=== PATIENT | male | born 1955 | race Caucasian/White ===

== ENCOUNTER 2018-11-20 13:31 | Emergency (ER) | payer MEDICARE, MEDICAID ==
[2018-11-20] MEDS ORDERED: Sodium Chloride 0.9% 10 ML Syringe FLUSH PRN (14:31)
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
[2018-11-20] MEDS ORDERED: Sodium Chloride 0.9% 1,000 ML IV ONE ×2 (14:34→15:49)
== END 2018-11-20 17:13 | disposition home or self-care (01) ==
LOC: FB.ED 13:31
DX: S30.0XXA Contusion of lower back and pelvis, initial encounter (principal); R03.1 Nonspecific low blood-pressure reading; E86.0 Dehydration; F41.9 Anxiety disorder, unspecified; W18.39XA Other fall on same level, initial encounter; Y92.009 Unspecified place in unspecified non-institutional (private) residence as the place of occurrence of the external cause; Z79.82 Long term (current) use of aspirin; Z79.899 Other long term (current) drug therapy
CPT/HCPCS: 36415; 70450; 71046; 72125; 73502; 80053; 81001; 84484; 85025; 85610; 86140; 93005; 96360; 96361; 99285; J7030; 93010; 99284

== ENCOUNTER 2020-06-25 17:51 | Emergency (ER) | payer MEDICARE, MEDICAID ==
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
== END 2020-06-25 19:42 ==
LOC: FB.ED 17:51
DX: Z43.1 Encounter for attention to gastrostomy (principal); I95.9 Hypotension, unspecified; N40.0 Benign prostatic hyperplasia without lower urinary tract symptoms; Z79.899 Other long term (current) drug therapy; Z79.82 Long term (current) use of aspirin
CPT/HCPCS: 43762; 51702; 99283-25; 99284

== ENCOUNTER 2020-11-19 12:58 | Emergency (ER) | payer MEDICARE, MEDICAID ==
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
== END 2020-11-19 13:22 ==
LOC: FB.ED 12:58
DX: K94.23 Gastrostomy malfunction (principal); Z79.82 Long term (current) use of aspirin; Z79.899 Other long term (current) drug therapy
CPT/HCPCS: 43762; 99284-25

== ENCOUNTER 2021-11-10 07:20 | Emergency (ER) | payer MEDICARE, MEDICAID | END 2021-11-10 08:15 | LOC: FB.ED 07:20 | DX: K94.23 Gastrostomy malfunction (principal); J44.9 Chronic obstructive pulmonary disease, unspecified; N40.0 Benign prostatic hyperplasia without lower urinary tract symptoms; Z79.82 Long term (current) use of aspirin; Z79.899 Other long term (current) drug therapy | CPT/HCPCS: 43752; 99281; 99282-25 ==

== ENCOUNTER 2021-11-18 08:50 | Inpatient (IN) | payer MEDICARE, MEDICAID ==
[2021-11-18] MEDS ORDERED: cefTRIAXone 2 GM Vial IVPUSH ONE (11:34)
[2021-11-18] MEDS ORDERED: Azithromycin 500 MG in Sodium Chloride 0.9% 250 ML IV ONE (11:34)
[2021-11-18] MEDS ORDERED: Acetaminophen 325 MG Tab PO PRN (16:31)
[2021-11-18] MEDS: Sodium Chloride 0.9% 10 ML Syringe FLUSH PRN ×3 (16:43→21:54)
[2021-11-18] MEDS: Enoxaparin 40 MG/0.4 ML Syringe SUBCUT SCH (16:44)
[2021-11-18] MEDS ORDERED: Acetaminophen 325 MG Tab GTUBE PRN (16:47)
[2021-11-18] MEDS ORDERED: Bisacodyl 10 MG Supp RECTAL PRN (18:46)
[2021-11-18] MEDS ORDERED: Calcium Carbonate 500 MG Tab.Chew GTUBE PRN (18:46)
[2021-11-18] MEDS ORDERED: Ondansetron 4 MG Tab.DIS GTUBE PRN (18:48)
[2021-11-18] MEDS: Ondansetron 4 MG/2 ML SDV IVPUSH PRN (18:50)
[2021-11-18] MEDS ORDERED: hydrOXYzine HCl 50 MG/ML SDV IM ONE (20:58)
[2021-11-18] MEDS ORDERED: Sodium Chloride 0.9% 1,000 ML IV SCH (21:00)
[2021-11-18] MEDS ORDERED: Polyvinyl Alcohol 1.4%/Povidone 0.6% Ophth Soln 0.4 ML Box of 30 EYEBOTH SCH (21:00)
[2021-11-18] MEDS: Gabapentin 100 MG Cap GTUBE SCH (21:56)
[2021-11-18] MEDS: Baclofen 10 MG Tab GTUBE SCH (21:57)
[2021-11-18] MEDS: Sertraline 50 MG Tab GTUBE SCH (21:57)
[2021-11-18] MEDS: traMADol 50 MG Tab GTUBE SCH (21:58)
[2021-11-18] MEDS: Acetaminophen 325 MG Tab GTUBE SCH (22:00)
[2021-11-18] MEDS: Aluminum Hydroxide/Magnesium Hydroxide Susp 30 ML Cup GTUBE SCH (22:03)
[2021-11-18] MEDS: Valproic Acid 250 MG/5 ML Syrup ML (473 ML Bottle) GTUBE SCH (22:15)
[2021-11-18] MEDS: Glycopyrrolate 1 MG Tab GTUBE SCH (22:16)
[2021-11-19] MEDS ORDERED: Pantoprazole 40 MG Tab.CR PO SCH (09:00)
[2021-11-19] MEDS ORDERED: Finasteride 5 MG Tab SCH (09:00)
[2021-11-19] MEDS ORDERED: Famotidine 20 MG Tab PO SCH (09:00)
[2021-11-19] MEDS ORDERED: Famotidine 20 MG Tab GTUBE SCH ×2 (09:00→09:02)
[2021-11-19] MEDS ORDERED: Pantoprazole 40 MG Tab.CR SCH (09:00)
[2021-11-19] MEDS ORDERED: Wheat Dextrin Powder 244 GM Container GTUBE SCH (09:00)
[2021-11-19] MEDS ORDERED: Finasteride 5 MG Tab PO SCH (09:00)
[2021-11-19] MEDS ORDERED: atorvaSTATin 20 MG Tab PO SCH (09:00)
[2021-11-19] MEDS ORDERED: Furosemide 20 MG/2 ML VIAL IVPUSH ONE (09:15)
[2021-11-19] MEDS: Valproic Acid 250 MG/5 ML Syrup ML (473 ML Bottle) GTUBE SCH ×2 (09:53→20:23)
[2021-11-19] MEDS: Menthol 10%/Methyl Salicylate 30% 85 GM Tube TOP SCH ×3 (10:07→20:24)
[2021-11-19] MEDS: atorvaSTATin 20 MG Tab GTUBE SCH (10:10)
[2021-11-19] MEDS: Glycopyrrolate 1 MG Tab GTUBE SCH ×2 (10:10→20:27)
[2021-11-19] MEDS: Baclofen 10 MG Tab GTUBE SCH ×2 (10:11→20:23)
[2021-11-19] MEDS: Acetaminophen 325 MG Tab GTUBE SCH ×3 (10:12→20:37)
[2021-11-19] MEDS: Carboxymethylcellulose Sodium 1% Ophth Gel 0.4 ML UD Box of 30 EYEBOTH SCH ×3 (10:14→20:27)
[2021-11-19] MEDS ORDERED: Ibuprofen Susp 100 MG/5 ML 5 ML UD Cup GTUBE PRN (10:22)
[2021-11-19] MEDS ORDERED: Magnesium Hydroxide 400 MG/5 ML Susp 30 ML Cup GTUBE PRN (10:22)
[2021-11-19] MEDS ORDERED: guaiFENesin 100 MG/5 ML Soln 5 ML UD Cup OGTUBE PRN (10:22)
[2021-11-19] MEDS: traMADol 50 MG Tab GTUBE SCH ×2 (10:32→20:36)
[2021-11-19] MEDS: Gabapentin 100 MG Cap GTUBE SCH ×2 (10:32→20:36)
[2021-11-19] MEDS: Aluminum Hydroxide/Magnesium Hydroxide Susp 30 ML Cup GTUBE SCH ×3 (10:34→20:23)
[2021-11-19] MEDS: Piperacillin/Tazobactam 4.5 GM in Sodium Chloride 0.9% 100 ML IV SCH ×3 (10:48→22:34)
[2021-11-19] MEDS: Ondansetron 4 MG/2 ML SDV IVPUSH PRN (10:54)
[2021-11-19] MEDS ORDERED: cefTRIAXone 2 GM Vial IVPUSH SCH (11:30)
[2021-11-19] MEDS ORDERED: Azithromycin 500 MG in Sodium Chloride 0.9% 250 ML IV SCH (11:30)
[2021-11-19] MEDS: Pantoprazole 40 MG Vial IVPUSH SCH (11:51)
[2021-11-19] MEDS: Aluminum Hydroxide/Magnesium Hydroxide Susp 30 ML Cup GTUBE PRN ×2 (14:24→14:29)
[2021-11-19] MEDS: Enoxaparin 40 MG/0.4 ML Syringe SUBCUT SCH (18:21)
[2021-11-19] MEDS: Sertraline 50 MG Tab GTUBE SCH (20:29)
[2021-11-20] MEDS: Ondansetron 4 MG/2 ML SDV IVPUSH PRN ×2 (00:06→16:12)
[2021-11-20] MEDS: Piperacillin/Tazobactam 4.5 GM in Sodium Chloride 0.9% 100 ML IV SCH (03:58)
[2021-11-20] MEDS: Glycopyrrolate 1 MG Tab GTUBE SCH ×2 (08:43→21:10)
[2021-11-20] MEDS: Menthol 10%/Methyl Salicylate 30% 85 GM Tube TOP SCH ×3 (08:43→21:04)
[2021-11-20] MEDS: atorvaSTATin 20 MG Tab GTUBE SCH (08:43)
[2021-11-20] MEDS: Baclofen 10 MG Tab GTUBE SCH ×2 (08:44→21:07)
[2021-11-20] MEDS: Aluminum Hydroxide/Magnesium Hydroxide Susp 30 ML Cup GTUBE SCH ×3 (08:45→21:08)
[2021-11-20] MEDS: Carboxymethylcellulose Sodium 1% Ophth Gel 0.4 ML UD Box of 30 EYEBOTH SCH ×3 (08:45→21:08)
[2021-11-20] MEDS: Acetaminophen 325 MG Tab GTUBE SCH ×3 (08:46→21:09)
[2021-11-20] MEDS: traMADol 50 MG Tab GTUBE SCH ×2 (08:55→21:04)
[2021-11-20] MEDS: Gabapentin 100 MG Cap GTUBE SCH ×2 (08:55→21:04)
[2021-11-20] MEDS: Valproic Acid 250 MG/5 ML Syrup ML (473 ML Bottle) GTUBE SCH ×2 (08:57→21:07)
[2021-11-20] MEDS ORDERED: Furosemide 40 MG/4 ML VIAL IVPUSH SCH (09:00)
[2021-11-20] MEDS: Sodium Chloride 0.9% 10 ML Syringe FLUSH PRN ×2 (09:02→16:12)
[2021-11-20] MEDS: Amoxicillin/Clavulanate K 875-125 MG Tab GTUBE SCH ×2 (10:49→21:04)
[2021-11-20] MEDS: Pantoprazole 40 MG Vial IVPUSH SCH (11:00)
[2021-11-20] MEDS: Enoxaparin 40 MG/0.4 ML Syringe SUBCUT SCH (16:13)
[2021-11-20] MEDS ORDERED: Ondansetron 4 MG Tab.DIS GTUBE PRN (16:31)
[2021-11-20] MEDS ORDERED: Nystatin Topical Powder 15 GM Bottle TOP SCH (21:00)
[2021-11-20] MEDS: Sertraline 50 MG Tab GTUBE SCH (21:09)
[2021-11-21] MEDS: Menthol 10%/Methyl Salicylate 30% 85 GM Tube TOP SCH (08:03)
[2021-11-21] MEDS: Valproic Acid 250 MG/5 ML Syrup ML (473 ML Bottle) GTUBE SCH (08:03)
[2021-11-21] MEDS: Aluminum Hydroxide/Magnesium Hydroxide Susp 30 ML Cup GTUBE SCH (08:04)
[2021-11-21] MEDS: Carboxymethylcellulose Sodium 1% Ophth Gel 0.4 ML UD Box of 30 EYEBOTH SCH (08:05)
[2021-11-21] MEDS: Glycopyrrolate 1 MG Tab GTUBE SCH (08:05)
[2021-11-21] MEDS: Amoxicillin/Clavulanate K 875-125 MG Tab GTUBE SCH (08:05)
[2021-11-21] MEDS: atorvaSTATin 20 MG Tab GTUBE SCH (08:05)
[2021-11-21] MEDS: Baclofen 10 MG Tab GTUBE SCH (08:05)
[2021-11-21] MEDS: Acetaminophen 325 MG Tab GTUBE SCH (08:06)
[2021-11-21] MEDS: traMADol 50 MG Tab GTUBE SCH (08:08)
[2021-11-21] MEDS: Gabapentin 100 MG Cap GTUBE SCH (08:08)
== END 2021-11-21 12:30 | DRG 178 ==
LOC: FB.ED 08:50 → FB.MS 12:54
PROVIDERS: ADMIT Family Medicine; ATTEND Family Medicine
DX: J69.0 Pneumonitis due to inhalation of food and vomit (principal); R09.02 Hypoxemia; R65.10 Systemic inflammatory response syndrome (SIRS) of non-infectious origin without acute organ dysfunction; Z66 Do not resuscitate; Z86.16 Personal history of COVID-19; H54.7 Unspecified visual loss; Z97.0 Presence of artificial eye; J44.9 Chronic obstructive pulmonary disease, unspecified; F41.9 Anxiety disorder, unspecified; K58.9 Irritable bowel syndrome, unspecified; G43.909 Migraine, unspecified, not intractable, without status migrainosus; R13.19 Other dysphagia; D64.9 Anemia, unspecified; Z20.822 Contact with and (suspected) exposure to COVID-19; Z51.5 Encounter for palliative care; I10 Essential (primary) hypertension; N40.0 Benign prostatic hyperplasia without lower urinary tract symptoms; Z93.1 Gastrostomy status; Z79.82 Long term (current) use of aspirin; Z78.9 Other specified health status; Z79.899 Other long term (current) drug therapy; Z87.820 Personal history of traumatic brain injury
CPT/HCPCS: 36415; 71046; 80053; 85025; 96374; 99285 ×2; J0696; U0002; 74019; 80048; 82271; 83605; 87040; 94150; 97116-GP; 97161-GP; 97165-GO; 97530-GO; 97535-GO; 99223; 99233; 99238; A9270-GY; C9113; J0456; J1650; J1940; J2405; J2543; J3410; J3490; J7030; J7050